=== PATIENT | female | born 1990 | race Caucasian/White ===

== ENCOUNTER 2018-10-17 20:43 | Emergency (ER) | payer BC, SELFPAY ==
[2018-10-17] MEDS ORDERED: CEFTRIAXONE 1000 MG/VIAL ONE (21:34)
[2018-10-17] MEDS ORDERED: LIDOCAINE 1% MPF 2 ML AMPULE ONE (21:35)
[2018-10-17 22:11] LABS: Urine Blood 2+ (NEG); Urine Glucose TRACE (NEG); Urine Protein NEGATIVE (NEG); Urine Specific Gravity 1.015 (1.005-1.030); Urine pH 5.5 (5.0-7.0)
[2018-10-17] MEDS ORDERED: SMZ./TMP. 800/160 MG TABLET ONE (23:21)
[2018-10-18] MEDS ORDERED: TAMSULOSIN 0.4 MG SR CAP ONE (00:08)
[2018-10-18] MEDS ORDERED: ONDANSETRON 4 MG/2 ML VIAL ONE (00:08)
[2018-10-18] MEDS ORDERED: MORPHINE 4 MG/ML SYR ONE (00:08)
[2018-10-18 00:42] LABS: Absolute Lymphocytes (CBC) 1.3 K/uL (0.7-4.9); Absolute Monocytes 0.6 K/uL (0.1-1.3); Absolute Neutrophil 14.3 K/uL (1.8-8.0); Basophils % 0.3 % (0-1.3); Eosinophils % 0.2 % (0-4.4); Lymphocytes % 8.3 % (15.3-44.8); MCH 33.4 pg (27.0-35.0); MCV 96.5 fL (80-100); MPV 8.1 fL (7.6-11.3); RBC Red Blood Cell Count 4.87 M/uL (3.86-4.86)
[2018-10-18 00:53] LABS: Albumin 4.3 g/dL (3.4-5.0); Bilirubin Total 0.4 mg/dL (0.2-1.0); Potassium 3.8 mmol/L (3.5-5.1); Protein, Total 8.1 g/dL (6.4-8.2)
--- NOTE | 2018-10-18 01:21 | ER ---
Nurse's Notes [facility] Name: Ana Capone Age: 28 yrs Sex: Female : 1990 Arrival Date: 10/17/2018 Time: 20:44 Bed 18 Private MD: Diagnosis: Cystitis;Hydronephrosis with renal and ureteral calculous [id number] mm left proximal ureter;Elevated white blood cell count Presentation: 10/17 20:47 Presenting complaint: Patient states: "We went to the clinic on Wednesday for symptoms aj1 of UTI, I had some blood in my urine. They gave me Cipro, but now I'm having back pains." Denies fever. Transition of care: patient was not received from another setting of care. Onset of symptoms was October 17, 2018. Risk Assessment: Do you want to hurt yourself or someone else? Patient reports no desire to harm self or others. Initial Sepsis Screen: Does the patient meet any 2 criteria? No. Patient's initial sepsis screen is negative. Does the patient have a suspected source of infection? Yes: Dysuria/Frequency/Urgency/UTI. Care prior to arrival: None. 20:47 Method Of Arrival: Ambulatory aj1 20:47 Acuity: YANNICK 4 aj1 Triage Assessment: 20:49 General: Appears in no apparent distress. uncomfortable, Behavior is calm, cooperative, aj1 appropriate for age. Pain: Complains of pain in back Pain currently is 8 out of 10 on a pain scale. Neuro: Level of Consciousness is awake, alert, obeys commands. Cardiovascular: Patient's skin is warm and dry. Respiratory: Airway is patent Respiratory effort is even, unlabored, Respiratory pattern is regular, symmetrical. : Denies burning with urination, urinary frequency, urgency. Musculoskeletal: Range of motion: intact in all extremities. 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 - Social history:: Smoking status: Patient uses tobacco products, smokes one-half pack cigarettes per day. - Ebola Screening: : Patient denies travel to an Ebola-affected area in the 21 days before illness onset. - Family history:: not pertinent. Screenin:08 Abuse screen: Denies threats or abuse. Denies injuries from another. Nutritional ao screening: No deficits noted. Tuberculosis screening: No symptoms or risk factors identified. Fall Risk None identified. Assessment: 21:04 General: Appears in no apparent distress. uncomfortable. Pain: Complains of pain in ao back Pain does not radiate. Pain currently is 8 out of 10 on a pain scale. Neuro: Level of Consciousness is awake, alert, obeys commands, Oriented to person, place, time, situation, Appropriate for age Moves all extremities. Full function Speech is normal, Facial symmetry appears normal, Pupils are PERRLA. Cardiovascular: Capillary refill < 3 seconds Patient's skin is warm and dry. Respiratory: Airway is patent Respiratory effort is even, unlabored, Respiratory pattern is regular, symmetrical, Breath sounds are clear bilaterally. GI: No signs and/or symptoms were reported involving the gastrointestinal system. Abdomen is non-distended, Bowel sounds present X 4 quads. : Urine is ap blood. EENT: No signs and/or symptoms were reported regarding the EENT system. Derm: Skin is intact, Skin is pink, warm \\T\\ dry. normal, Skin temperature is warm. Musculoskeletal: Circulation, motion, and sensation intact. Range of motion: intact in all extremities. 22:11 Reassessment: Patient appears in no apparent distress at this time. Patient and/or ao family updated on plan of care and expected duration. Pain level reassessed. Patient is alert, oriented x 3, equal unlabored respirations, skin warm/dry/pink. Waiting on Ct Scan. 23:19 Reassessment: Patient appears in no apparent distress at this time. Patient and/or ao family updated on plan of care and expected duration. Pain level reassessed. Patient medicated with Bactrim as ordered by Dr Santoro. 10/18 00:40 Reassessment: Patient appears in no apparent distress at this time. Patient and/or ao family updated on plan of care and expected duration. Pain level reassessed. Patient is alert, oriented x 3, equal unlabored respirations, skin warm/dry/pink. 01:21 Reassessment: Patient o be discharge after 2 Liter of fluids are given. ao 01:56 Reassessment: Pt back from X-ray and getting fluids before DC. ao 03:28 Reassessment: DC instructions given to patient and significant other. patient agree ao with POC and to follow up with PCP. No questions at this time. Vital Signs: 10/17 20:49 BP 142 / 92; Pulse 89; Resp 18; Temp 98.2; Pulse Ox 100% on R/A; Weight 77.56 kg (R); aj1 Height 5 ft. 5 in. (165.10 cm) (R); Pain 8/10; 22:00 BP 141 / 96; Pulse 79; Resp 16; Pulse Ox 98% on R/A; ao 23:21 BP 134 / 92; Pulse 82; Resp 16; Pulse Ox 99% ; ao 12 00:40 BP 126 / 82; Pulse 72; Resp 16; Pulse Ox 100% on R/A; ao 03:25 BP 149 / 97; Pulse 75; Resp 15; Pulse Ox 98% on R/A; ao 10/17 20:49 Body Mass Index 28.46 (77.56 kg, 165.10 cm) aj1 ED Course: 10/17 20:44 Patient arrived in ED. ag3 20:48 Triage completed. aj1 20:49 Arm band placed on Patient placed in an exam room. aj1 20:54 Elijah Santoro MD is Attending Physician. gladis 21:04 Miguel Johnson, RN is Primary Nurse. ao 21:08 Patient has correct armband on for positive identification. Pulse ox on. NIBP on. ao 22:[address] via wheelchair. nj 22:52 CT completed. Patient tolerated procedure well. Patient moved back from CT. nj 22:57 CT Stone Protocol In Process Unspecified. EDMS 10/18 00:05 Inserted saline lock: 18 gauge in right antecubital area, using aseptic technique. ao Blood collected. 01:19 Ashley Simon MD is Referral Physician. gladis 01:47 Patient moved to radiology via wheelchair. kw 01:47 X-ray completed. Patient tolerated procedure well. kw 01:47 Patient moved back from radiology. kw 01:48 Abdomen 1 View (KUB) XRAY In Process Unspecified. EDMS 02:20 Inserted saline lock: 22 gauge in left antecubital area, using aseptic technique. ao 03:28 No provider procedures requiring assistance completed. IV discontinued, intact, ao bleeding controlled, No redness/swelling at site. Pressure dressing applied. Administered Medications: 10/17 21:38 Drug: Rocephin (cefTRIAXone) 1 grams Route: IM; Site: right gluteus; ao 22:27 Follow up: Response: No adverse reaction ao 10/18 00:14 Follow up: Response: No adverse reaction ao 10/17 23:16 Drug: Bactrim (160 mg-800 mg (DS) 1 tablet Route: PO; ao 10/18 00:14 Follow up: Response: No adverse reaction ao 00:13 Drug: morphine 4 mg Route: IVP; Site: right antecubital; ao 01:45 Follow up: Response: No adverse reaction ao 00:13 Drug: Zofran 4 mg Route: IVP; Site: right antecubital; ao 01:46 Follow up: Response: No adverse reaction ao 00:14 Drug: Flomax 0.4 mg Route: PO; ao 01:46 Follow up: Response: No adverse reaction ao 01:45 Drug: NS 0.9% 1000 ml Route: IV; Rate: 1 bolus; Site: left antecubital; ao 03:30 Follow up: IV Status: Completed infusion; IV Intake: 1000ml ao 01:45 Drug: NS 0.9% 1000 ml Route: IV; Rate: 1 bolus; Site: right antecubital; ao 03:31 Follow up: IV Status: Completed infusion; IV Intake: 1000ml ao 01:55 Drug: Rocephin - (cefTRIAXone) 1 grams Route: IVPB; Infused Over: 30 mins; Site: right ao antecubital; 01:58 Follow up: IV Status: Completed infusion; IV Intake: 10ml ao 03:31 Drug: TORadol 30 mg Route: IVP; Site: left antecubital; ao 03:31 Follow up: Response: Medication administered at discharge. ao Intake: 01:58 IV: 10ml; Total: 10ml. ao 03:30 IV: 1000ml; Total: 1010ml. ao 03:31 IV: 1000ml; Total: 2010ml. ao Outcome: 01:20 Discharge ordered by . gladis 03:28 Discharged to home ambulatory. ao 03:28 Condition: stable 03:28 Discharge instructions given to patient, significant other, Instructed on discharge instructions, follow up and referral plans. the need for admit, Demonstrated understanding of instructions, follow-up care, medications, Prescriptions given X 4. 03:36 Patient left the ED. ao Signatures: Dispatcher [employer] Viviana Hernandez RN RN Elijah Bae MD MD cha Whitley, Kimberlee kw Ortiz, Alex, RN RN ao Jordan, Darius Padilla, Irais gonzalez
--- NOTE | 2018-10-18 01:21 | EDPHYS ---
Physician Documentation [facility] Name: Ana Capone Age: 28 yrs Sex: Female : 1990 Arrival Date: 10/17/2018 Time: 20:44 Bed 18 Private MD: ED Physician Elijah Santoro HPI: 10/17 21:01 This 28 yrs old Female presents to ER via Ambulatory with complaints of Back gladis Pain. 21:01 The patient presents with pain that is acute, with no known mechanism of injury. The gladis symptoms are located in the left mid back. Onset: The symptoms/episode began/occurred 3 day(s) ago. The pain does not radiate. Associated signs and symptoms: The patient has no apparent associated signs or symptoms. The problem was sustained from unknown cause. Modifying factors: The patient symptoms are alleviated by nothing, the patient symptoms are aggravated by movement. Severity of symptoms: At their worst the symptoms were mild, in the emergency department the symptoms are unchanged. The patient has not experienced similar symptoms in the past. 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 - Social history:: Smoking status: Patient uses tobacco products, smokes one-half pack cigarettes per day. - Ebola Screening: : Patient denies travel to an Ebola-affected area in the 21 days before illness onset. - Family history:: not pertinent. ROS: 21:01 Constitutional: Negative for fever, chills, and weight loss, Eyes: Negative for injury, gladis pain, redness, and discharge, ENT: Negative for injury, pain, and discharge, Neck: Negative for injury, pain, and swelling, Cardiovascular: Negative for chest pain, palpitations, and edema, Respiratory: Negative for shortness of breath, cough, wheezing, and pleuritic chest pain, Abdomen/GI: Negative for abdominal pain, nausea, vomiting, diarrhea, and constipation, : Negative for injury, bleeding, discharge, and swelling, MS/Extremity: Negative for injury and deformity, Skin: Negative for injury, rash, and discoloration, Neuro: Negative for headache, weakness, numbness, tingling, and seizure, Psych: Negative for depression, anxiety, suicide ideation, homicidal ideation, and hallucinations, Allergy/Immunology: Negative for hives, rash, and allergies, Endocrine: Negative for neck swelling, polydipsia, polyuria, polyphagia, and marked weight changes, Hematologic/Lymphatic: Negative for swollen nodes, abnormal bleeding, and unusual bruising. 21:01 Back: Positive for flank pain, on the left. Exam: 21:03 Constitutional: This is a well developed, well nourished patient who is awake, alert, gladis and in no acute distress. Head/Face: Normocephalic, atraumatic. Eyes: Pupils equal round and reactive to light, extra-ocular motions intact. Lids and lashes normal. Conjunctiva and sclera are non-icteric and not injected. Cornea within normal limits. Periorbital areas with no swelling, redness, or edema. ENT: Nares patent. No nasal discharge, no septal abnormalities noted. Tympanic membranes are normal and external auditory canals are clear. Oropharynx with no redness, swelling, or masses, exudates, or evidence of obstruction, uvula midline. Mucous membranes moist. Neck: Trachea midline, no thyromegaly or masses palpated, and no cervical lymphadenopathy. Supple, full range of motion without nuchal rigidity, or vertebral point tenderness. No Meningismus. Chest/axilla: Normal chest wall appearance and motion. Nontender with no deformity. No lesions are appreciated. Cardiovascular: Regular rate and rhythm with a normal S1 and S2. No gallops, murmurs, or rubs. Normal PMI, no JVD. No pulse deficits. Respiratory: Lungs have equal breath sounds bilaterally, clear to auscultation and percussion. No rales, rhonchi or wheezes noted. No increased work of breathing, no retractions or nasal flaring. Skin: Warm, dry with normal turgor. Normal color with no rashes, no lesions, and no evidence of cellulitis. MS/ Extremity: Pulses equal, no cyanosis. Neurovascular intact. Full, normal range of motion. Neuro: Awake and alert, GCS 15, oriented to person, place, time, and situation. Cranial nerves II-XII grossly intact. Motor strength 5/5 in all extremities. Sensory grossly intact. Cerebellar exam normal. Normal gait. Psych: Awake, alert, with orientation to person, place and time. Behavior, mood, and affect are within normal limits. 21:03 Abdomen/GI: Inspection: gravid appearance, is noted, Bowel sounds: normal, Palpation: abdomen is soft and non-tender, Liver: no appreciated palpable abnormalities, Hernia: not appreciated. Vital Signs: 20:49 BP 142 / 92; Pulse 89; Resp 18; Temp 98.2; Pulse Ox 100% on R/A; Weight 77.56 kg (R); aj1 Height 5 ft. 5 in. (165.10 cm) (R); Pain 8/10; 22:00 BP 141 / 96; Pulse 79; Resp 16; Pulse Ox 98% on R/A; ao 23:21 BP 134 / 92; Pulse 82; Resp 16; Pulse Ox 99% ; ao 10/18 00:40 BP 126 / 82; Pulse 72; Resp 16; Pulse Ox 100% on R/A; ao 03:25 BP 149 / 97; Pulse 75; Resp 15; Pulse Ox 98% on R/A; ao 10/17 20:49 Body Mass Index 28.46 (77.56 kg, 165.10 cm) aj1 MDM: 10/17 20:54 Patient medically screened. [facility] 21:03 Data reviewed: vital signs, nurses notes, lab test result(s), urinalysis. [facility] 10/17 21:17 Order name: Urine Dipstick--Ancillary (enter results); Complete Time: 22:49 ms 10/17 21:17 Order name: Urine --Ancillary (enter results); Complete Time: 22:49 ms 10/17 23:45 Order name: CBC with Diff [facility] 10/17 23:45 Order name: Comprehensive Metabolic Panel [facility] 10/17 23:46 Order name: CBC with Automated Diff EDUT 10/17 23:46 Order name: Comprehensive Metabolic Panel; Complete Time: 01:11 EDMS 10/17 21:09 Order name: CT Stone Protocol [facility] 10/18 00:53 Order name: Manual Differential EDMS 10/18 01:17 Order name: Abdomen 1 View (KUB) XRAY [facility] 10/17 20:55 Order name: Urine Dipstick-Ancillary (obtain specimen); Complete Time: 21:16 [facility] 10/17 20:55 Order name: Urine Test (obtain specimen); Complete Time: 21:16 gladis Administered Medications: 21:38 Drug: Rocephin (cefTRIAXone) 1 grams Route: IM; Site: right gluteus; ao 22:27 Follow up: Response: No adverse reaction ao 10/18 00:14 Follow up: Response: No adverse reaction ao 10/17 23:16 Drug: Bactrim (160 mg-800 mg (DS) 1 tablet Route: PO; ao 10/18 00:14 Follow up: Response: No adverse reaction ao 00:13 Drug: morphine 4 mg Route: IVP; Site: right antecubital; ao 01:45 Follow up: Response: No adverse reaction ao 00:13 Drug: Zofran 4 mg Route: IVP; Site: right antecubital; ao 01:46 Follow up: Response: No adverse reaction ao 00:14 Drug: Flomax 0.4 mg Route: PO; ao 01:46 Follow up: Response: No adverse reaction ao 01:45 Drug: NS 0.9% 1000 ml Route: IV; Rate: 1 bolus; Site: left antecubital; ao 03:30 Follow up: IV Status: Completed infusion; IV Intake: 1000ml ao 01:45 Drug: NS 0.9% 1000 ml Route: IV; Rate: 1 bolus; Site: right antecubital; ao 03:31 Follow up: IV Status: Completed infusion; IV Intake: 1000ml ao 01:55 Drug: Rocephin - (cefTRIAXone) 1 grams Route: IVPB; Infused Over: 30 mins; Site: right ao antecubital; 01:58 Follow up: IV Status: Completed infusion; IV Intake: 10ml ao 03:31 Drug: TORadol 30 mg Route: IVP; Site: left antecubital; ao 03:31 Follow up: Response: Medication administered at discharge. ao Disposition: 10/18/18 01:20 Discharged to Home. Impression: Cystitis, Hydronephrosis with renal and ureteral calculous obstruction - 4-5 mm left proximal ureter, Elevated white blood cell count. - Condition is Stable. - Discharge Instructions: Dysuria, Kidney Stones, Urinary Tract Infection, Adult, Kidney Stones, [id number], Hydronephrosis, Dietary Guidelines to Help Prevent Kidney Stones. - Prescriptions for Tylenol- Codeine #3 300-30 mg Oral Tablet - take 2 tablets by ORAL route every 6 hours As needed; 30 tablet. Bactrim DS 800- 160 mg Oral Tablet - take 1 tablet by ORAL route every 12 hours for 7 days; 14 tablet. Flomax 0.4 mg Oral Capsule, Sust. Release 24 hr - take 1 capsule by ORAL route once daily 1/2 hour following the same meal each day; 30 capsule. Zofran 4 mg Oral Tablet - take 1 tablet by ORAL route every 12 hours As needed; 14 tablet. - Medication Reconciliation Form, Thank You Letter, Antibiotic Education, Prescription Opioid Use, Work release form form. - Follow up: Private Physician; When: 2 - 3 days; Reason: Recheck today's complaints, Continuance of care, Re-evaluation by your physician. Follow up: Ashley Simon; When: 2 - 3 days; Reason: Recheck today's complaints, Continuance of care, Re-evaluation by your physician. Signatures: Dispatcher [employer] EDMS Viviana Moyer RN RN ajElijah Oliva MD MD cha Ortiz, Alex, RN RN ao Corrections: (The following items were deleted from the chart) 03:36 01:20 10/18/2018 01:20 Discharged to Home. Impression: Cystitis; Hydronephrosis with ao renal and ureteral calculous obstruction - 4-5 mm left proximal ureter; Elevated white blood cell count. Condition is Stable. Discharge Instructions: Dysuria, Urinary Tract Infection, Adult, Kidney Stones, Kidney Stones, [id number], Hydronephrosis, Dietary Guidelines to Help Prevent Kidney Stones. Prescriptions for Bactrim DS 800-160 mg Oral Tablet - take 1 tablet by ORAL route every 12 hours for 7 days; 14 tablet, Flomax 0.4 mg Oral Capsule, Sust. Release 24 hr - take 1 capsule by ORAL route once daily 1/2 hour following the same meal each day; 30 capsule, Zofran 4 mg Oral Tablet - take 1 tablet by ORAL route every 12 hours As needed; 14 tablet, Tylenol-Codeine #3 300-30 mg Oral Tablet - take 2 tablets by ORAL route every 6 hours As needed; 30 tablet. and Forms are Medication Reconciliation Form, Thank You Letter, Antibiotic Education, Prescription Opioid Use. Follow up: Private Physician; When: 2 - 3 days; Reason: Recheck today's complaints, Continuance of care, Re-evaluation by your physician. Follow up: Ashley Simon; When: 2 - 3 days; Reason: Recheck today's complaints, Continuance of care, Re-evaluation by your physician. gladis
[2018-10-18 01:43] LABS: Blood Morphology Comment NOT SEEN (NOT SEEN); Platelet Estimate ADEQ
[2018-10-18] MEDS ORDERED: NA CHLORIDE 0.9% 2,000 ML ONE (01:47)
[2018-10-18] MEDS ORDERED: KETOROLAC 30 MG/ML INJ ONE (01:59)
[2018-10-18] MEDS ORDERED: CEFTRIAXONE/SWI 1gm 1 GM/10 ML SYR ONE (02:00)
[2018-10-18 03:45] VITALS: TEMP 98.2
[2018-10-18 03:50] VITALS: BP 149/97; O2SAT 98
--- NOTE | 2018-10-18 07:47 | RAD REPORT ---
EXAM DESCRIPTION: CT - Stone Protocol - 10/18/2018 3:48 am CLINICAL HISTORY: Abdominal pain. Flank pain/hematuria COMPARISON: None. TECHNIQUE: Computed axial tomography of the abdomen pelvis was obtained without oral or IV contrast. Lack of IV and oral contrast limits evaluation of solid organs, bowel, and vessels. Coronal reformat noy images were obtained and reviewed. Preliminary report generated by virtual radiologic and review ed prior to dictation All CT scans are performed using dose optimization technique as appropriate and may include automated exposure control or mA/KV adjustment according to patient size. FINDINGS: Tiny nonobstructing left renal calculus. Mild left hydronephrosis with perirenal stranding . 6 millimeter calculus proximal left ureter Hounsfield unit 776. 14 millimeter low-density area righ t kidney. The liver, spleen, pancreas and adrenals appear grossly normal There is no evidence of diverticulitis. The appendix appears normal IMPRESSION: A 6 millimeter calculus proximal left ureter resulting in mild left hydronephrosis. 14 millimeter low-density area right kidney nonspecific but probably represents a cyst. This should b e confirmed with ultrasound
--- NOTE | 2018-10-18 08:26 | RAD REPORT ---
EXAM DESCRIPTION: RAD - Abdomen 1 View (KUB) - 10/18/2018 1:50 am CLINICAL HISTORY: Abdomen pain. FINDINGS: The bowel gas pattern is unremarkable. A 8 millimeter left ureteral calculus overlies the left transverse process of L3.
== END 2018-10-18 03:36 | disposition home or self-care (01) ==
LOC: ER 20:43
DX: N30.90 Cystitis, unspecified without hematuria (principal); N13.2 Hydronephrosis with renal and ureteral calculous obstruction; D72.829 Elevated white blood cell count, unspecified; F17.210 Nicotine dependence, cigarettes, uncomplicated
CPT/HCPCS: 36415; 74018; 74176; 76377; 80053; 81003; 81025; 85025; 96372; 99284; J0696; J2001; J2405; J7030

== ENCOUNTER 2018-11-05 07:06 | Emergency (ER) | payer SELFPAY ==
[2018-11-05 07:49] LABS: Absolute Lymphocytes (CBC) 2.4 K/uL (0.7-4.9); Absolute Monocytes 0.7 K/uL (0.1-1.3); Absolute Neutrophil 5.9 K/uL (1.8-8.0); Basophils % 0.5 % (0-1.3); Eosinophils % 2.1 % (0-4.4); Hematocrit 44.7 % (36.0-45.0); Lymphocytes % 25.8 % (15.3-44.8); MPV 7.5 fL (7.6-11.3); Monocytes % 7.6 % (3.3-12.3); RBC Red Blood Cell Count 4.58 M/uL (3.86-4.86)
[2018-11-05 08:03] LABS: ALT/SGPT 34 U/L (12-78); AST/SGOT 15 U/L (15-37); Albumin 3.8 g/dL (3.4-5.0); Alkaline Phosphatase 125 U/L (45-117); BUN Blood Urea Nitrogen 11 mg/dL (7-18); Bicarbonate 26 mmol/L (21-32); Bilirubin Direct < 0.1 mg/dL (0-0.2); Bilirubin Total 0.2 mg/dL (0.2-1.0); Glucose Level 104 mg/dL (74-106); Lipase 89 U/L (73-393); Potassium 3.3 mmol/L (3.5-5.1); Protein, Total 7.6 g/dL (6.4-8.2); Sodium Level 139 mmol/L (136-145)
[2018-11-05 08:19] LABS: Urine Bacteria <20 /HPF (<20); Urine RBC 20-50 /HPF (NONE SEEN)
[2018-11-05 08:20] LABS: Urine Blood 1+ (NEG); Urine Glucose NEGATIVE (NEG); Urine Protein NEGATIVE (NEG); Urine pH 6.5 (5.0-7.0)
[2018-11-05 08:20] LABS: Urine Culture Reflex Order NOT NEEDED; Urine Mucus 1+ /HPF (NONE SEEN)
--- NOTE | 2018-11-05 08:25 | RAD REPORT ---
EXAM DESCRIPTION: CT - Stone Protocol - 11/05/2018 8:06 am CLINICAL HISTORY: Abdominal pain, left flank pain COMPARISON: CT stone October 17 TECHNIQUE: Axial 5 mm thick images were obtained without oral or IV contrast. The [id number] span s the entirety of the system including uppermost abdomen and lung bases. All CT scans are performed using dose optimization technique as appropriate and may include automated exposure control or mA/KV adjustment according to patient size. FINDINGS: Mild to moderate dilatation of the pelvis and calices on the left noted extending into the proximal left ureter. This is fractionally worse than October 17. The patient's 8 mm mid left ure ter calculus is still identified. There is been only 10 mm of distal migration of the stone since Oct. Distal to the stone the ureter is decompressed. No bladder calculus. No other obstructing o r nonobstructing calculi on the left. Left kidney is mildly edematous. No significant right side find ing. No suspicious renal masses. Isodense masses and pyelonephritis are not excluded on a stone erik col CT scan. No urinary bladder suspicious finding. No significant adrenal finding. Imaged portions of the liver, spleen and pancreas show no suspicious findings on non-contrast imaging . No gallbladder or biliary tree abnormality identified. No suspicious bowel findings. No hernia, mass or bulky lymphadenopathy noted. No free air, free fluid or inflammatory stranding. No significant bony abnormality. IMPRESSION: Patient has an 8 mm calcification mid left ureter. On a KUB projection stone is superimp osed on the L4 left transverse process. Hydronephrosis proximal to the stone is [id number] in degree, fractionally worse than October 17. Stone has migrated distally approximately 10 mm since the October 17 study. Isodense masses and pyelonephritis are not excluded on stone protocol technique.
--- NOTE | 2018-11-05 08:46 | EDPHYS ---
Physician Documentation [facility] Name: Ana Capone Age: 28 yrs Sex: Female : 1990 Arrival Date: 11/05/2018 Time: 07:12 Bed 14 Private MD: ED Physician Ana Kiser HPI: 11/05 07:31 This 28 yrs old Female presents to ER via Ambulatory with complaints of ma2 Possible Kidney Stone. 07:31 Onset: The symptoms/episode began/occurred gradually, 2 day(s) ago. The patient ma2 complains of pain in the left mid back. Onset: The symptoms/episode began/occurred gradually, 2 day(s) ago. The symptoms do not radiate. Associated signs and symptoms: Pertinent negatives: diarrhea, dizziness, dysuria, urinary frequency, headache, hematuria, nausea, pain radiating to the lower extremities, vomiting. Severity of pain: At its worst the pain was moderate in the emergency department the pain is unchanged. patient declined pain medicine in er, only want to know if stone has passed and make sure no kidney infection, takes bactrim and t3 at home . 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 - Social history:: Smoking status: Patient uses tobacco products, denies chronic smoking, but will smoke occasionally, Patient/guardian denies using alcohol, street drugs, The patient lives alone, . - Ebola Screening: : No symptoms or risks identified at this time. - Family history:: not pertinent. - Hospitalizations: : No recent hospitalization is reported. ROS: 07:31 Constitutional: Negative for fever, chills, and weight loss, Cardiovascular: Negative ma2 for chest pain, palpitations, and edema, Respiratory: Negative for shortness of breath, cough, wheezing, and pleuritic chest pain, Abdomen/GI: Negative for abdominal pain, nausea, diarrhea, and constipation, MS/Extremity: Negative for injury and deformity. 07:31 Back: Positive for flank pain, Negative for decreased range of motion, acute changes. 07:31 All other systems are negative. Exam: 07:31 Constitutional: This is a well developed, well nourished patient who is awake, alert, ma2 and in no acute distress. Neck: Trachea midline, no thyromegaly or masses palpated, and no cervical lymphadenopathy. Supple, full range of motion without nuchal rigidity, or vertebral point tenderness. No Meningismus. Chest/axilla: Normal chest wall appearance and motion. Nontender with no deformity. No lesions are appreciated. Cardiovascular: Regular rate and rhythm with a normal S1 and S2. No gallops, murmurs, or rubs. Normal PMI, no JVD. No pulse deficits. Respiratory: Lungs have equal breath sounds bilaterally, clear to auscultation and percussion. No rales, rhonchi or wheezes noted. No increased work of breathing, no retractions or nasal flaring. Abdomen/GI: Soft, non-tender, with normal bowel sounds. No distension or tympany. No guarding or rebound. No evidence of tenderness throughout. MS/ Extremity: Pulses equal, no cyanosis. Neurovascular intact. Full, normal range of motion. Neuro: Awake and alert, GCS 15, oriented to person, place, time, and situation. Cranial nerves II-XII grossly intact. Motor strength 5/5 in all extremities. Sensory grossly intact. Cerebellar exam normal. Normal gait. Vital Signs: 07:16 BP 147 / 103; Pulse 95; Resp 18; Temp 97.5; Pulse Ox 100% ; Weight 74.84 kg; Height 5 sv ft. 5 in. (165.10 cm); Pain 8/10; 07:54 BP 133 / 96; Pulse 82; Resp 16; Pulse Ox 98% on R/A; rb1 08:45 BP 136 / 92; Pulse 88; Resp 16; Pulse Ox 100% on R/A; Pain 7/10; rb1 09:08 BP 138 / 97; Pulse 90; Resp 17; Pulse Ox 98% on R/A; rb1 07:16 Body Mass Index 27.46 (74.84 kg, 165.10 cm) sv MDM: 07:19 Patient medically screened. ma2 07:31 Differential diagnosis: nephrolithiasis, pyelonephritis, UTI, Ureterolithiasis, urinary ma2 tract infection. 08:40 Data reviewed: vital signs, nurses notes, EMS record, lab test result(s), radiologic ma2 studies. Counseling: I had a detailed discussion with the patient and/or guardian regarding: the historical points, exam findings, and any diagnostic results supporting the discharge/admit diagnosis, the presence of at least one elevated blood pressure reading (>120/80) during this emergency department visit, the need for outpatient follow up. ED course: has mild to moderate hydro, pain is mild, creatinine is wnl no uti wbc wnl and vs wnl i explained that the fact that the stone is 8 mm and only progressed 1 cm down over perior of 20 and she already drink a lot of water and takes flomax daily, she may not pass the stone and will likely need urologic intervention, no urologist available in this hospital today and she does not meet criteria for emergency transfer.. i advised her to make all efforts to see urologist as soon as possible. . 11/05 07:20 Order name: Basic Metabolic Panel; Complete Time: 08:36 ma2 11/05 07:20 Order name: CBC with Diff; Complete Time: 08:36 ma2 11/05 07:20 Order name: Creatinine for Radiology; Complete Time: 08:36 ma2 11/05 07:20 Order name: Hepatic Function; Complete Time: 08:36 ma2 11/05 07:20 Order name: Lipase; Complete Time: 08:36 ma2 11/05 07:31 Order name: UA MICROSCOPIC; Complete Time: 08:36 ma2 11/05 07:20 Order name: IV Saline Lock; Complete Time: 07:48 ma2 11/05 07:20 Order name: Labs collected and sent; Complete Time: 07:48 ma2 11/05 07:20 Order name: CT Stone Protocol; Complete Time: 08:36 ma2 11/05 07:49 Order name: Urine Dipstick--Ancillary (enter results); Complete Time: 08:36 eb 11/05 07:49 Order name: Urine --Ancillary (enter results); Complete Time: 08:36 eb 11/05 07:31 Order name: Urine Dipstick-Ancillary (obtain specimen); Complete Time: 07:48 ma2 Administered Medications: 07:28 CANCELLED (Patient Refused; provider discretion): NS 0.9% 1000 ml IV at 1 bolus Per rb1 protocol; 1000 mL bolus 07:28 CANCELLED (Patient Refused; provider discretion): morphine 4 mg IVP once [facility] 07:28 CANCELLED (Patient Refused; provider discretion): Zofran 4 mg IVP once; over 2 minutes [facility] Disposition: 11/05/18 08:45 Discharged to Home. Impression: Calculus of urinary tract in diseases classified elsewhere. - Condition is Stable. - Discharge Instructions: Lithotripsy. - Work release form, Medication Reconciliation Form, Thank You Letter, Antibiotic Education, Prescription Opioid Use form. - Follow up: Private Physician; When: Tomorrow; Reason: Continuance of care. Signatures: Dispatcher [employer] EDAzalia Rivera RN RN Gala Gabriel RN RN rb1 Ana Kiser MD MD az2 Corrections: (The following items were deleted from the chart) 07:28 07:20 NS 0.9% 1000 ml IV at 1 bolus Per protocol; 1000 mL bolus [place]. [place] [id number] 07:28 07:20 morphine 4 mg IVP once [place]. [place] [id number] 07:28 07:20 Zofran 4 mg IVP once; over 2 minutes [place]. [place] [id number] 09:10 08:45 11/05/2018 08:45 Discharged to Home. Impression: Calculus of urinary tract in rb1 diseases classified elsewhere. Condition is Stable. Forms are Medication Reconciliation Form, Thank You Letter, Antibiotic Education, Prescription Opioid Use. Follow up: Private Physician; When: Tomorrow; Reason: Continuance of care. ma2
--- NOTE | 2018-11-05 08:46 | ER ---
Nurse's Notes [facility] Name: Ana Capone Age: 28 yrs Sex: Female : 1990 Arrival Date: 11/05/2018 Time: 07:12 Bed 14 Private MD: Diagnosis: Calculus of urinary tract in diseases classified elsewhere Presentation: 11/05 07:14 Presenting complaint: Patient states: left flank pain has been intermittent since sv 10/17/18 when she was dx with kidney stones. No difficulty urinating. Transition of care: patient was not received from another setting of care. Onset of symptoms was October 17, 2018. Care prior to arrival: None. 07:14 Method Of Arrival: Ambulatory sv 07:14 Acuity: YANNICK 3 sv 07:20 Risk Assessment: Do you want to hurt yourself or someone else? Patient reports no rb1 desire to harm self or others. Initial Sepsis Screen: Does the patient meet any 2 criteria? No. Patient's initial sepsis screen is negative. Does the patient have a suspected source of infection? No. Patient's initial sepsis screen is negative. Triage Assessment: 07:14 General: Appears in no apparent distress. uncomfortable, Behavior is calm, cooperative, sv appropriate for age. Pain: Complains of pain in left low back Pain currently is 8 out of 10 on a pain scale. Neuro: Level of Consciousness is awake, alert, obeys commands, Oriented to person, place, time, situation, Moves all extremities. Full function Gait is steady. Respiratory: Respiratory effort is even, unlabored, Respiratory pattern is regular, symmetrical. : Denies inability to void. 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 - Social history:: Smoking status: Patient uses tobacco products, denies chronic smoking, but will smoke occasionally, Patient/guardian denies using alcohol, street drugs, The patient lives alone, . - Ebola Screening: : No symptoms or risks identified at this time. - Family history:: not pertinent. - Hospitalizations: : No recent hospitalization is reported. Screenin:20 Abuse screen: Denies threats or abuse. Nutritional screening: No deficits noted. rb1 Tuberculosis screening: No symptoms or risk factors identified. Fall Risk None identified. Assessment: 07:20 General: Appears in no apparent distress. comfortable, Behavior is calm, cooperative. rb1 Pain: Complains of pain in left low back Pain currently is 7 out of 10 on a pain scale. Quality of pain is described as sharp. Neuro: Level of Consciousness is awake, alert, obeys commands, Oriented to person, place, time, situation. Cardiovascular: Capillary refill < 3 seconds is brisk in bilateral fingers. Respiratory: Airway is patent Respiratory effort is even, unlabored, Respiratory pattern is regular, symmetrical. GI: Bowel sounds present X 4 quads. Abd is soft and non tender. Derm: Skin is pink, warm \T\ dry. 07:20 : Reports burning with urination. rb1 08:01 Reassessment: Pt. went to CT. rb1 08:25 Reassessment: Patient appears in no apparent distress at this time. No changes from rb1 previously documented assessment. 09:00 Reassessment: Patient appears in no apparent distress at this time. Patient and/or rb1 family updated on plan of care and expected duration. Pain level reassessed. Patient is alert, oriented x 3, equal unlabored respirations, skin warm/dry/pink. Vital Signs: 07:16 BP 147 / 103; Pulse 95; Resp 18; Temp 97.5; Pulse Ox 100% ; Weight 74.84 kg; Height 5 sv ft. 5 in. (165.10 cm); Pain 8/10; 07:54 BP 133 / 96; Pulse 82; Resp 16; Pulse Ox 98% on R/A; rb1 08:45 BP 136 / 92; Pulse 88; Resp 16; Pulse Ox 100% on R/A; Pain 7/10; rb1 09:08 BP 138 / 97; Pulse 90; Resp 17; Pulse Ox 98% on R/A; rb1 07:16 Body Mass Index 27.46 (74.84 kg, 165.10 cm) sv ED Course: 07:12 Patient arrived in ED. mr 07:15 Triage completed. sv 07:16 Arm band placed on. sv 07:16 Patient placed in an exam room, on a stretcher. sv 07:19 Ana Kiser MD is Attending Physician. ma2 07:20 Patient has correct armband on for positive identification. Bed in low position. Call [facility] light in reach. Side rails up X 1. Pulse ox on. NIBP on. 07:22 Radiology exam delayed due to test not completed at this time. 2 07:27 Gala Gabriel, RN is Primary Nurse. rb1 07:35 Urine collected: clean catch specimen, clear. 3 07:37 Initial lab(s) drawn, by me, sent to lab. Inserted saline lock: 22 gauge in right 3 antecubital area, using aseptic technique. Blood collected. 08:07 CT Stone Protocol In Process Unspecified. EDMS 08:11 CT completed. Patient tolerated procedure well. Patient moved to CT via wheelchair. [address] 09:10 No provider procedures requiring assistance completed. IV discontinued, intact, rb1 bleeding controlled, No redness/swelling at site. Pressure dressing applied. Administered Medications: 07:28 CANCELLED (Patient Refused; provider discretion): NS 0.9% 1000 ml IV at 1 bolus Per [facility] protocol; 1000 mL bolus 07:28 CANCELLED (Patient Refused; provider discretion): morphine 4 mg IVP once rb1 07:28 CANCELLED (Patient Refused; provider discretion): Zofran 4 mg IVP once; over 2 minutes [facility] Outcome: 08:45 Discharge ordered by . ma2 09:10 Patient left the ED. rb1 09:10 Discharged to home ambulatory. [facility] 09:10 Condition: stable 09:10 Discharge instructions given to patient, Instructed on discharge instructions, follow up and referral plans. Demonstrated understanding of instructions, follow-up care, Prescriptions given X none Signatures: Dispatcher [employer] EDOK Azalia Stout, Hanh Clark RN mr Gala Gabriel, JOSE ALBERTO ABRAMS [facility] Nela Tejeda [facility] Keiry Briones [facility] Ana Kiser MD MD alDarrick
[2018-11-05 09:22] VITALS: TEMP 97.5
[2018-11-05 09:23] VITALS: BP 133/96; O2SAT 98
== END 2018-11-05 09:10 | disposition home or self-care (01) ==
LOC: ER 07:06
DX: N20.9 Urinary calculus, unspecified (principal); Z87.442 Personal history of urinary calculi
CPT/HCPCS: 36415; 74176; 76377; 80048; 80076; 81003; 81015; 81025; 83690; 85025; 99284

== ENCOUNTER 2018-12-30 17:24 | Emergency (ER) | payer SELFPAY ==
[2018-12-30] MEDS ORDERED: KETOROLAC 30 MG/ML INJ ONE (18:09)
[2018-12-30 18:14] LABS: Urine Blood 1+ (NEG); Urine Glucose NEGATIVE (NEG); Urine Protein 1+ (NEG)
[2018-12-30] MEDS ORDERED: NA CHLORIDE 0.9% 1,000 ML ONE (18:30)
--- NOTE | 2018-12-30 18:42 | RAD REPORT ---
EXAM DESCRIPTION: CT - Stone Protocol - 12/30/2018 6:12 pm CLINICAL HISTORY: Abdominal pain. Left flank pain COMPARISON: October 2018 TECHNIQUE: Computed axial tomography of the abdomen pelvis was obtained without oral or IV contrast. Lack of IV and oral contrast limits evaluation of solid organs, bowel, and vessels. Coronal reformat noy images were obtained and reviewed. All CT scans are performed using dose optimization technique as appropriate and may include automated exposure control or mA/KV adjustment according to patient size. FINDINGS: A renal calculus is not seen. 6 millimeter calculus distal left ureter Hounsfield unit 979 . Mild left hydronephrosis. The calculus lies about 7 centimeters from the UVJ. 18 millimeter nonspec ific low-density right renal mass The liver, spleen, pancreas and adrenals appear grossly normal There is no evidence of diverticulitis. The appendix appears normal 2.3 x 1.6 centimeter left inguinal lymph node. 1.6 x 1.6 centimeter left inguinal lymph node. Both rolon ve enlarged since the prior exam IMPRESSION: A 6 millimeter calculus distal left ureter with mild left hydronephrosis Two inguinal lymph nodes which have enlarged since the prior exam. It is recommended that the patient have a nonemergent left inguinal ultrasound for further evaluation
[2018-12-30 18:52] LABS: BUN Blood Urea Nitrogen 10 mg/dL (7-18); Bicarbonate 29 mmol/L (21-32); Glucose Level 84 mg/dL (74-106); Potassium 3.7 mmol/L (3.5-5.1); Sodium Level 140 mmol/L (136-145)
--- NOTE | 2018-12-30 18:58 | EDPHYS ---
Physician Documentation [facility] Name: Ana Capone Age: 28 yrs Sex: Female : 1990 Arrival Date: 12/30/2018 Time: 17:25 Bed 14 Private MD: ED Physician Hasmukh Rush HPI: 12/30 18:15 This 28 yrs old Female presents to ER via Ambulatory with complaints of kdr Possible Kidney Stone, Urinary Problem. 18:15 The patient presents with abdominal pain Left flank. Onset: The symptoms/episode kdr began/occurred Last few days. The symptoms radiate to the left flank. Associated signs and symptoms: Pertinent positives: dysuria, nausea, Pertinent negatives: blood in stools, chest pain, constipation, diarrhea, fever, headache, hematuria, palpitations, shortness of breath, vaginal discharge, vomiting, vomiting blood. The symptoms are described as achy, burning, vague, waxing/waning. Modifying factors: The symptoms are alleviated by nothing, the symptoms are aggravated by nothing. Severity of pain: At its worst the pain was severe in the emergency department the pain has improved moderately. The patient has experienced similar episodes in the past, a few times. The patient has not recently seen a physician. 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 - Social history:: Smoking status: Patient uses tobacco products, smokes one-half pack cigarettes per day. - Ebola Screening: : No symptoms or risks identified at this time. ROS: 18:15 Constitutional: Negative for fever, chills, and weight loss, Eyes: Negative for injury, kdr pain, redness, and discharge, ENT: Negative for injury, pain, and discharge, Neck: Negative for injury, pain, and swelling, Cardiovascular: Negative for chest pain, palpitations, and edema, Respiratory: Negative for shortness of breath, cough, wheezing, and pleuritic chest pain, Back: Negative for injury and pain, : Negative for injury, bleeding, discharge, and swelling, MS/Extremity: Negative for injury and deformity, Skin: Negative for injury, rash, and discoloration, Neuro: Negative for headache, weakness, numbness, tingling, and seizure activity. Psych: Negative for depression, anxiety, suicide ideation, homicidal ideation, and hallucinations, Allergy/Immunology: Negative for hives, rash, and allergies, Endocrine: Negative for neck swelling, polydipsia, polyuria, polyphagia, and marked weight changes, Hematologic/Lymphatic: Negative for swollen nodes, abnormal bleeding, and unusual bruising. 18:15 Abdomen/GI: Positive for abdominal pain, nausea, Negative for constipation, abdominal cramps, abdominal distension, anorexia, dysphagia, hematemesis, black/tarry stool, rectal pain, rectal bleeding, bowel incontinence. Exam: 18:15 Constitutional: This is a well developed, well nourished patient who is awake, alert, kdr and in no acute distress. Head/Face: Normocephalic, atraumatic. Eyes: Pupils equal round and reactive to light, extra-ocular motions intact. Lids and lashes normal. Conjunctiva and sclera are non-icteric and not injected. Cornea within normal limits. Periorbital areas with no swelling, redness, or edema. Neck: Trachea midline, no thyromegaly or masses palpated, and no cervical lymphadenopathy. Supple, full range of motion without nuchal rigidity, or vertebral point tenderness. No Meningismus. Chest/axilla: Normal chest wall appearance and motion. Nontender with no deformity. No lesions are appreciated. Cardiovascular: Regular rate and rhythm with a normal S1 and S2. No gallops, murmurs, or rubs. Normal PMI, no JVD. No pulse deficits. Respiratory: Lungs have equal breath sounds bilaterally, clear to auscultation and percussion. No rales, rhonchi or wheezes noted. No increased work of breathing, no retractions or nasal flaring. Back: No spinal tenderness. No costovertebral tenderness. Full range of motion. Skin: Warm, dry with normal turgor. Normal color with no rashes, no lesions, and no evidence of cellulitis. MS/ Extremity: Pulses equal, no cyanosis. Neurovascular intact. Full, normal range of motion. Neuro: Awake and alert, GCS 15, oriented to person, place, time, and situation. Cranial nerves II-XII grossly intact. Motor strength 5/5 in all extremities. Sensory grossly intact. Cerebellar exam normal. Normal gait. Psych: Awake, alert, with orientation to person, place and time. Behavior, mood, and affect are within normal limits. 18:15 Abdomen/GI: Inspection: abdomen appears normal, Bowel sounds: active, diminished, in all quadrants, Palpation: soft, mild abdominal tenderness, in the anterior aspect of left lateral abdomen and left lower quadrant. Vital Signs: 17:41 BP 139 / 97; Pulse 92; Resp 18 S; Temp 98.0(TE); Pulse Ox 100% on R/A; Weight 77.56 kg aa5 (R); Height 5 ft. 5 in. (165.10 cm) (R); Pain 8/10; 18:45 BP 142 / 73; Pulse 81; Resp 16; Pulse Ox 99% on R/A; Pain 4/10; em 19:20 BP 140 / 77; Pulse 75; Resp 18 S; Temp 98.3(O); Pulse Ox 100% on R/A; cc3 17:41 Body Mass Index 28.46 (77.56 kg, 165.10 cm) aa5 MDM: 18:15 Data reviewed: vital signs, nurses notes, lab test result(s), radiologic studies. kdr Counseling: I had a detailed discussion with the patient and/or guardian regarding: the historical points, exam findings, and any diagnostic results supporting the discharge/admit diagnosis, lab results, radiology results. 18:57 Patient medically screened. [facility] 12/30 17:55 Order name: Urine Dipstick--Ancillary (enter results) 12/30 17:55 Order name: Urine --Ancillary (enter results) 12/30 17:56 Order name: CBC with Diff 12/30 17:56 Order name: Basic Metabolic Panel 12/30 18:15 Order name: Urine --Ancillary; Complete Time: 18:53 EDMS 12/30 18:15 Order name: Urine Dipstick-Ancillary; Complete Time: 18:53 EDMS 12/30 17:56 Order name: CT Stone Protocol 12/30 18:44 Order name: CT; Complete Time: 18:53 EDMS 12/30 18:53 Order name: Basic Metabolic Panel; Complete Time: 18:53 EDMS 12/30 19:05 Order name: CBC with Automated Diff; Complete Time: 19:26 EDMS Administered Medications: 18:32 Drug: TORadol 30 mg Route: IVP; Site: right antecubital; ss 18:52 Follow up: Response: No adverse reaction; Pain is decreased em 18:32 Drug: NS 0.9% 1000 ml Route: IV; Rate: 1 bolus; Site: right antecubital; ss 19:35 Follow up: Response: No adverse reaction; IV Status: Completed infusion; IV Intake: cc3 1000ml Disposition: 12/30/18 18:57 Discharged to Home. Impression: kidney stone - left, L:eft hydronephrosus. - Condition is Stable. - Discharge Instructions: Kidney Stones, [id number]. - Prescriptions for Tylenol- Codeine #3 300-30 mg Oral Tablet - take 2 tablets by ORAL route every 4-6 hours As needed; 16 tablet. Flomax 0.4 mg Oral Capsule, Sust. Release 24 hr - take 1 capsule by ORAL route once daily 1/2 hour following the same meal each day; 10 capsule. Bactrim DS 800- 160 mg Oral Tablet - take 1 tablet by ORAL route every 12 hours for 3 days; 6 tablet. promethazine 25 mg Oral Tablet - take 1 tablet by ORAL route every 6 hours As needed; 12 tablet. - Medication Reconciliation Form, Thank You Letter, Antibiotic Education, Prescription Opioid Use, Work release form form. - Follow up: Private Physician; When: 2 - 3 days; Reason: If symptoms return, Further diagnostic work-up, Recheck today's complaints, Continuance of care, Re-evaluation by your physician. - Problem is an acute exacerbation. - Symptoms have improved. - Notes: Recommend follow-up ultrasound of groin for possible lymph nodes Signatures: Dispatcher [employer] EDHasmukh Talavera MD MD kdr Munoz, Edgar, SUPERVISOR NUCLEAR MEDICINE SUPERVISOR NUCLEAR MEDICINE em Elysia Wheat, RN RN aa5 Penny Peralta RN RN ss Starr, Gregory, MD MD gs Cordel, Charlene cc3 Corrections: (The following items were deleted from the chart) 19:46 18:57 12/30/2018 18:57 Discharged to Home. Impression: kidney stone - left; L:eft cc3 hydronephrosus. Condition is Stable. Forms are Medication Reconciliation Form, Thank You Letter, Antibiotic Education, Prescription Opioid Use. Follow up: Private Physician; When: 2 - 3 days; Reason: If symptoms return, Further diagnostic work-up, Recheck today's complaints, Continuance of care, Re-evaluation by your physician. Problem is an acute exacerbation. Symptoms have improved. kdr
--- NOTE | 2018-12-30 18:58 | ER ---
Nurse's Notes [facility] Name: Ana Capone Age: 28 yrs Sex: Female : 1990 Arrival Date: 12/30/2018 Time: 17:25 Bed 14 Private MD: Diagnosis: kidney stone - left;L:eft hydronephrosus Presentation: 12/30 17:40 Presenting complaint: Patient states: left flank pain that began last night. Pt also aa5 reports burning with urination. Transition of care: patient was not received from another setting of care. Onset of symptoms was December 2018. Risk Assessment: Do you want to hurt yourself or someone else? Patient reports no desire to harm self or others. Initial Sepsis Screen: Does the patient meet any 2 criteria? No. Patient's initial sepsis screen is negative. Does the patient have a suspected source of infection? No. Patient's initial sepsis screen is negative. Care prior to arrival: None. 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 - Social history:: Smoking status: Patient uses tobacco products, smokes one-half pack cigarettes per day. - Ebola Screening: : No symptoms or risks identified at this time. Screenin:00 Abuse screen: Denies threats or abuse. Nutritional screening: No deficits noted. em Tuberculosis screening: No symptoms or risk factors identified. Fall Risk None identified. Assessment: 18:00 General: Appears in no apparent distress. comfortable, Behavior is calm, cooperative, em Denies fever. Pain: Complains of pain in left lower quadrant and anterior aspect of left lateral abdomen Pain currently is 8 out of 10 on a pain scale. Neuro: Level of Consciousness is awake, alert, obeys commands, Oriented to person, place, time, situation. Cardiovascular: Capillary refill < 3 seconds Patient's skin is warm and dry. Respiratory: Airway is patent Respiratory effort is even, unlabored, Respiratory pattern is regular, symmetrical. GI: Abdomen is flat, Bowel sounds present X 4 quads. Abd is soft and non tender X 4 quads. Patient currently denies nausea, vomiting. :. : Reports burning with urination. Derm: Skin is intact, is healthy with good turgor, Skin is pink, warm \T\ dry. Musculoskeletal: Capillary refill < 3 seconds, Range of motion: intact in all extremities. 18:47 Reassessment: Patient appears in no apparent distress at this time. Patient and/or em family updated on plan of care and expected duration. Pain level reassessed. Patient is alert, oriented x 3, equal unlabored respirations, skin warm/dry/pink. rates pain 4/10 Patient states feeling better. 19:15 Reassessment: Patient appears in no apparent distress at this time. Patient and/or cc3 family updated on plan of care and expected duration. Pain level reassessed. Patient is alert, oriented x 3, equal unlabored respirations, skin warm/dry/pink. Received this female patient from morning shift LITO Mercado as a case of urinary problem for discharge home after IV fluids completion. With IV cannula gauge 20 at the right ACV with ongoing IVF of NS 1liter bolus. 19:40 Reassessment: IV fluids completed, patient discharged home with prescriptions given. IV cc3 cannula removed and patient left ER vitally stable and ambulatory with her . Vital Signs: 17:41 BP 139 / 97; Pulse 92; Resp 18 S; Temp 98.0(TE); Pulse Ox 100% on R/A; Weight 77.56 kg aa5 (R); Height 5 ft. 5 in. (165.10 cm) (R); Pain 8/10; 18:45 BP 142 / 73; Pulse 81; Resp 16; Pulse Ox 99% on R/A; Pain 4/10; em 19:20 BP 140 / 77; Pulse 75; Resp 18 S; Temp 98.3(O); Pulse Ox 100% on R/A; cc3 17:41 Body Mass Index 28.46 (77.56 kg, 165.10 cm) aa5 ED Course: 17:25 Patient arrived in ED. as 17:33 Hasmukh Rush MD is Attending Physician. kdr 17:40 Triage completed. aa5 17:40 Arm band placed on. aa5 17:44 Rogelio French LVN is Primary Nurse. em 18:00 Patient has correct armband on for positive identification. Placed in gown. Bed in low em position. Call light in reach. Side rails up X2. Pulse ox on. NIBP on. 18:02 Patient moved to [place] via wheelchair. nj 18:08 CT completed. Patient tolerated procedure well. Patient moved back from [place]. or 18:30 Initial lab(s) drawn, by me, sent to lab. Urine collected: clean catch specimen, clear. em Inserted saline lock: 20 gauge in right antecubital area, using aseptic technique. Blood collected. 19:40 No provider procedures requiring assistance completed. IV discontinued, intact, cc3 bleeding controlled, No redness/swelling at site. Pressure dressing applied. Administered Medications: 18:32 Drug: TORadol 30 mg Route: IVP; Site: right antecubital; ss 18:52 Follow up: Response: No adverse reaction; Pain is decreased em 18:32 Drug: NS 0.9% 1000 ml Route: IV; Rate: 1 bolus; Site: right antecubital; ss 19:35 Follow up: Response: No adverse reaction; IV Status: Completed infusion; IV Intake: cc3 1000ml Intake: 19:35 IV: 1000ml; Total: 1000ml. cc3 Outcome: 18:57 Discharge ordered by MD. kdr 19:40 Discharged to home ambulatory, with family. cc3 19:40 Condition: stable 19:40 Discharge instructions given to patient, family, Instructed on discharge instructions, follow up and referral plans. medication usage, Demonstrated understanding of instructions, follow-up care, medications, Prescriptions given X 4. 19:46 Patient left the ED. cc3 Signatures: Hasmukh Rush MD MD [facility] Rogelio French, DIAMOND PICKER DIAMOND PICKER em Marly South Audri, RN RN aa5 Penny Peralta, JOSE ALBERTO RN Darius Floyd Charlene cc3
[2018-12-30 19:03] LABS: Absolute Lymphocytes (CBC) 2.4 K/uL (0.7-4.9); Absolute Monocytes 0.4 K/uL (0.1-1.3); Absolute Neutrophil 4.5 K/uL (1.8-8.0); Basophils % 0.7 % (0-1.3); Eosinophils % 1.9 % (0-4.4); Hematocrit 43.8 % (36.0-45.0); MPV 7.5 fL (7.6-11.3); Monocytes % 5.4 % (3.3-12.3); RBC Red Blood Cell Count 4.49 M/uL (3.86-4.86)
[2018-12-30 20:13] VITALS: TEMP 98
[2018-12-30 20:14] VITALS: BP 142/73; O2SAT 99
== END 2018-12-30 19:46 | disposition home or self-care (01) ==
LOC: ER 17:24
DX: N13.2 Hydronephrosis with renal and ureteral calculous obstruction (principal); F17.210 Nicotine dependence, cigarettes, uncomplicated
CPT/HCPCS: 36415; 74176; 76377; 80048; 81003; 81025; 85025; 96361; 96374; 99284; J7030

== ENCOUNTER 2019-01-10 10:04 | Day surgery (SDC) | payer SELFPAY ==
[2019-01-06 10:09] LABS: Absolute Lymphocytes (CBC) 2.8 K/uL (0.7-4.9); Absolute Monocytes 0.6 K/uL (0.1-1.3); Absolute Neutrophil 4.5 K/uL (1.8-8.0); Basophils % 0.5 % (0-1.3); Eosinophils % 2.2 % (0-4.4); Hematocrit 45.9 % (36.0-45.0); MPV 7.7 fL (7.6-11.3); Monocytes % 7.7 % (3.3-12.3); RBC Red Blood Cell Count 4.72 M/uL (3.86-4.86)
--- NOTE | 2019-01-06 10:10 | RAD REPORT ---
EXAM DESCRIPTION: RAD - Chest Pa And Lat (2 Views) - 01/06/2019 10:05 am CLINICAL HISTORY: preop Chest pain. COMPARISON: Abdomen 1 View (KUB) dated 01/05/2019; Abdomen 1 View (KUB) dated 10/18/2018 FINDINGS: The lungs are clear. The heart is normal in size. No displaced fractures. IMPRESSION: No acute or concerning finding suspected.
[2019-01-06 10:14] LABS: Urine Appearance CLEAR; Urine Bilirubin NEGATIVE (NEG); Urine Blood 1+ (NEG); Urine Color YELLOW; Urine Glucose NEGATIVE (NEG); Urine Microscopic Reflex ORDER UMIC; Urine Protein NEGATIVE (NEG); Urine Specific Gravity <=1.005 (1.005-1.030); Urine Urobilinogen 0.2 mg/dL (0.2-1.0)
[2019-01-06 10:17] LABS: Protime INR 1.13
[2019-01-06 10:30] LABS: BUN Blood Urea Nitrogen 7 mg/dL (7-18); Bicarbonate 29 mmol/L (21-32); Glucose Level 87 mg/dL (74-106); Phosphorus 3.5 mg/dL (2.5-4.9); Potassium 3.6 mmol/L (3.5-5.1); Sodium Level 139 mmol/L (136-145); Uric Acid 3.7 mg/dL (2.6-6.0)
[2019-01-06 10:40] LABS: Urine Culture Reflex Order NOT NEEDED
[2019-01-06 10:42] LABS: Urine Bacteria <20 /HPF (<20); Urine RBC <5 /HPF (NONE SEEN)
--- NOTE | 2019-01-06 22:29 | EKG ---
Test Date: 2019-01-06 Test Time: 09:47:09 Sheet Manager: BREEZY MEASUREMENT RESULTS: Intervals: Rate: 76 CA: 172 QRSD: 84 QT: 386 QTc: 434 [place]: P: 37 CA: 172 QRS: 69 T: 38 INTERPRETIVE STATEMENTS: Normal sinus rhythm Normal ECG No previous ECG available for comparison Electronically Signed On 01-06-19 22:27:54 EPIC ANALYST by Roney Marc
[2019-01-10] MEDS ORDERED: GENTAMICIN 80 MG/100 ML BAG 80 MG/100 ML BAG IV ONE (10:31)
[2019-01-10] MEDS: Ringers Lactate 1,000 ML IV ONE ×2 (10:35→12:39)
--- NOTE | 2019-01-10 11:28 | RAD REPORT ---
EXAM DESCRIPTION: RAD - Abdomen 1 View (KUB) - 01/10/2019 11:14 am CLINICAL HISTORY: Abdomen pain. ICD N 20.0 FINDINGS: The bowel gas pattern is unremarkable. Distal left ureteral calculus has migrated a few millimeters inferiorly since the January 05 exam
[2019-01-10] MEDS ORDERED: FENTANYL CITR 100 MCG/2 ML ONE (12:48)
[2019-01-10] MEDS ORDERED: LIDOCAINE 2% MPF 5 ML VIAL ONE (12:48)
[2019-01-10] MEDS ORDERED: MIDAZOLAM HCL 2 MG/2 ML INJ ONE (12:48)
[2019-01-10] MEDS ORDERED: PROPOFOL 200 MG/20 ML VIAL IV ONE (12:48)
[2019-01-10] MEDS ORDERED: MEPERIDINE HCL 25 MG/0.5 ML ONE (13:45)
[2019-01-10] MEDS ORDERED: HYDROCODONE/APAP 7.5/325 MG TAB ONE (14:46)
[2019-01-10 14:48] VITALS: BP 110/65; TEMP 98; O2SAT 98
== END 2019-01-10 14:45 | disposition home or self-care (01) ==
LOC: OR 10:04
PROVIDERS: ATTEND Urology
PROC: 0TF7XZZ Fragmentation in Left Ureter, External Approach (ICD-10-PCS; principal; 2019-01-10 12:45)
DX: N20.2 Calculus of kidney with calculus of ureter (principal); F17.210 Nicotine dependence, cigarettes, uncomplicated
CPT/HCPCS: 36415; 50590; 71046; 74018; 80048; 81003; 81015; 81025; 84100; 84550; 85025; 85610; 85730; 87086; 87088; 93005; J1580; J2175; J2250; J2704; J3010

== ENCOUNTER 2020-06-17 15:48 | Emergency (ER) | payer SELFPAY ==
[2020-06-17] MEDS ORDERED: METOCLOPRAMIDE 10 MG/2mL INJ ONE (16:32)
[2020-06-17] MEDS ORDERED: DIPHENHYDRAMINE 50 MG/ML VIAL ONE (16:32)
[2020-06-17] MEDS ORDERED: NA CHLORIDE 0.9% 500 ML ONE (16:32)
[2020-06-17] MEDS ORDERED: dexAMETHasone 10 MG/ML VIAL ONE (16:32)
--- NOTE | 2020-06-18 07:22 | EDPHYS ---
Physician Documentation [facility] Name: Ana Capone Age: 30 yrs Sex: Female : 1990 Arrival Date: 06/17/2020 Time: 16:02 Bed 15 Private MD: ED Physician Ronald Ramirez HPI: 06/17 16:34 This 30 yrs old Female presents to ER via Ambulatory with complaints of jr8 Headache. 16:34 The patient complains of pain to the forehead, right eye and left eye. The patient jr8 describes the headache as a pressure, throbbing. Onset: The symptoms/episode began/occurred acutely, yesterday. Associated signs and symptoms: The patient has no apparent associated signs or symptoms. Severity of symptoms: At its worst the pain was moderate, in the emergency department the pain is unchanged. Headache History: The patient has had previous headaches and this one is similar to previous episodes. The symptoms are alleviated by nothing. the symptoms are aggravated by movement, noise. The patient has experienced similar episodes in the past, several times, but today's symptoms are worse, lasting longer. The patient has not recently seen a physician. Historical: - Allergies: 16:03 Tramadol HCl; ll1 - PMHx: 16:03 Kidney stones; Migraines; ll1 - PSHx: 16:03 None; ll1 - Immunization history:: Flu vaccine is up to date. - Social history:: Smoking status: Patient denies any tobacco usage or history of. Patient/guardian denies using alcohol, street drugs, tobacco products. ROS: 16:34 Eyes: Negative for injury, pain, redness, and discharge, ENT: Negative for injury, jr8 pain, and discharge, Neck: Negative for injury, pain, and swelling, Cardiovascular: Negative for chest pain, palpitations, and edema, Respiratory: Negative for shortness of breath, cough, wheezing, and pleuritic chest pain, Abdomen/GI: Negative for abdominal pain, nausea, vomiting, diarrhea, and constipation, Back: Negative for injury and pain, MS/Extremity: Negative for injury and deformity, Skin: Negative for injury, rash, and discoloration. 16:34 Neuro: Positive for headache, Negative for altered mental status, dizziness, gait disturbance. Exam: 16:34 Eyes: Pupils equal round and reactive to light, extra-ocular motions intact. Lids and jr8 lashes normal. Conjunctiva and sclera are non-icteric and not injected. Cornea within normal limits. Periorbital areas with no swelling, redness, or edema. ENT: Nares patent. No nasal discharge, no septal abnormalities noted. Tympanic membranes are normal and external auditory canals are clear. Oropharynx with no redness, swelling, or masses, exudates, or evidence of obstruction, uvula midline. Mucous membranes moist. Neck: Trachea midline, no thyromegaly or masses palpated, and no cervical lymphadenopathy. Supple, full range of motion without nuchal rigidity, or vertebral point tenderness. No Meningismus. Cardiovascular: Regular rate and rhythm with a normal S1 and S2. No gallops, murmurs, or rubs. Normal PMI, no JVD. No pulse deficits. Respiratory: Lungs have equal breath sounds bilaterally, clear to auscultation and percussion. No rales, rhonchi or wheezes noted. No increased work of breathing, no retractions or nasal flaring. Abdomen/GI: Soft, non-tender, with normal bowel sounds. No distension or tympany. No guarding or rebound. No evidence of tenderness throughout. Back: No spinal tenderness. No costovertebral tenderness. Full range of motion. Skin: Warm, dry with normal turgor. Normal color with no rashes, no lesions, and no evidence of cellulitis. MS/ Extremity: Pulses equal, no cyanosis. Neurovascular intact. Full, normal range of motion. Neuro: Awake and alert, GCS 15, oriented to person, place, time, and situation. Cranial nerves II-XII grossly intact. Motor strength 5/5 in all extremities. Sensory grossly intact. Cerebellar exam normal. Normal gait. Vital Signs: 16:03 BP 156 / 107; Pulse 86; Resp 17; Temp 98.5; Pulse Ox 98% ; Weight 83.91 kg; Height 5 ll1 ft. 5 in. (165.10 cm); Pain 8/10; 17:15 BP 148 / 102; Pulse 91; Resp 16; Pulse Ox 100% on R/A; iw 16:03 Body Mass Index 30.79 (83.91 kg, 165.10 cm) ll1 MDM: 16:05 Patient medically screened. rust 17:26 Data reviewed: vital signs, nurses notes, and as a result, I will discharge patient. jr8 Data interpreted: Pulse oximetry: on room air is 100 %. Interpretation: normal. Counseling: I had a detailed discussion with the patient and/or guardian regarding: the historical points, exam findings, and any diagnostic results supporting the discharge/admit diagnosis, lab results, the need for outpatient follow up, a family practitioner, a neurologist, to return to the emergency department if symptoms worsen or persist or if there are any questions or concerns that arise at home. Response to treatment: the patient's symptoms have markedly improved after treatment, patient is well hydrated. 06/17 16:19 Order name: IV; Complete Time: 16:28 jr8 Administered Medications: 16:32 Drug: Benadryl 25 mg Route: IVP; Site: right antecubital; iw 16:32 Drug: Decadron - Dexamethasone 10 mg Route: IVP; Site: right antecubital; iw 16:32 Drug: NS 0.9% 500 ml Route: IV; Rate: bolus; Site: right antecubital; iw 16:33 Drug: Reglan 10 mg Route: IVP; Site: right antecubital; iw Disposition: 18:00 Co-signature as Attending Physician, Ronald Ramirez MD. rn Disposition: 06/17/20 17:27 Discharged to Home. Impression: Migraine. - Condition is Stable. - Discharge Instructions: Migraine Headache. - Prescriptions for Fioricet 50- 325-40 mg Oral tablet - take 2 tablet by ORAL route every 4 hours as needed not to exceed 6 tablets per 24hrs; 20 tablet. - Work release form, Medication Reconciliation Form, Thank You Letter, Antibiotic Education, Prescription Opioid Use form. - Follow up: Private Physician; When: 5 - 6 days; Reason: Recheck today's complaints, Continuance of care, Re-evaluation by your physician. - Problem is new. - Symptoms have improved. Signatures: Belinda Shea RN RN iw Ronald Ramirez MD MD rn Roszak, Josh, PA PA jr8 Zuri Woodruff RN RN ll1 Corrections: (The following items were deleted from the chart) 17:43 17:27 06/17/2020 17:27 Discharged to Home. Impression: Migraine. Condition is Stable. iw Forms are Medication Reconciliation Form, Thank You Letter, Antibiotic Education, Prescription Opioid Use. Follow up: Private Physician; When: 5 - 6 days; Reason: Recheck today's complaints, Continuance of care, Re-evaluation by your physician. Problem is new. Symptoms have improved. jr8
--- NOTE | 2020-06-18 07:22 | ER ---
Nurse's Notes [facility] Name: Ana Capone Age: 30 yrs Sex: Female : 1990 Arrival Date: 06/17/2020 Time: 16:02 Bed 15 Private MD: Diagnosis: Migraine Presentation: 06/17 16:03 Chief complaint: Patient states: Migraine PACK for 1 day, worse than usual for 1 month. + ll1 nausea. Coronavirus screen: Client denies travel out of the [place] in the last 14 days. At this time, the client does not indicate any symptoms associated with coronavirus-19. Ebola Screen: Patient denies travel to an Ebola-affected area in the 21 days before illness onset. Initial Sepsis Screen: Does the patient meet any 2 criteria? No. Patient's initial sepsis screen is negative. Risk Assessment: Do you want to hurt yourself or someone else? Patient reports no desire to harm self or others. 16:03 Method Of Arrival: Ambulatory ll1 16:03 Acuity: YANNICK 3 ll1 16:50 Initial Sepsis Screen: Does the patient have a suspected source of infection? No. iw Patient's initial sepsis screen is negative. Onset of symptoms was June 17, 2020. Triage Assessment: 17:00 Headache History: The patient has had previous headaches and this one is similar to iw previous episodes. General: Appears in no apparent distress. Behavior is calm, cooperative. 17:00 Pain: Also complains of no other associated symptoms. iw 17:40 Pain: Pain currently is 6 out of 10 on a pain scale. iw 19:23 Pain: Pain began. iw Historical: - Allergies: 16:03 Tramadol HCl; ll1 - PMHx: 16:03 Kidney stones; Migraines; ll1 - PSHx: 16:03 None; ll1 - Immunization history:: Flu vaccine is up to date. - Social history:: Smoking status: Patient denies any tobacco usage or history of. Patient/guardian denies using alcohol, street drugs, tobacco products. Screenin:36 Abuse screen: Denies threats or abuse. Denies injuries from another. Nutritional iw screening: No deficits noted. Tuberculosis screening: No symptoms or risk factors identified. Fall Risk None identified. Assessment: 16:50 General: Appears in no apparent distress. Behavior is calm, cooperative. Pain: iw Complains of pain in forehead Pain currently is 8 out of 10 on a pain scale. Neuro: Level of Consciousness is awake, alert, obeys commands, Oriented to person, place, time, situation, Moves all extremities. Full function Reports headache. Cardiovascular: Patient's skin is warm and dry. Respiratory: Respiratory effort is even, unlabored, Respiratory pattern is regular, symmetrical. Derm: Skin is intact, is healthy with good turgor. Musculoskeletal: Range of motion: intact in all extremities. 17:35 Reassessment: Patient appears in no apparent distress at this time. Patient and/or iw family updated on plan of care and expected duration. Pain level reassessed. Patient is alert, oriented x 3, equal unlabored respirations, skin warm/dry/pink. pain down to 6/10 Patient states feeling better. Patient states symptoms have improved. Vital Signs: 16:03 BP 156 / 107; Pulse 86; Resp 17; Temp 98.5; Pulse Ox 98% ; Weight 83.91 kg; Height 5 ll1 ft. 5 in. (165.10 cm); Pain 8/10; 17:15 BP 148 / 102; Pulse 91; Resp 16; Pulse Ox 100% on R/A; iw 16:03 Body Mass Index 30.79 (83.91 kg, 165.10 cm) ll1 ED Course: 16:02 Patient arrived in ED. mr 16:03 Arm band placed on Patient placed in an exam room, on a stretcher. ll1 16:05 Triage completed. ll1 16:05 Bharat Rodriguez [facility]. jr8 16:05 Ronald Ramirez MD is Attending Physician. jr8 16:28 Bed in low position. Call light in reach. Side rails up X 1. Warm blanket given. Verbal jp3 reassurance given. Pulse ox on. NIBP on. 16:28 Inserted saline lock: 20 gauge in right antecubital area, using aseptic technique. jp3 Patient maintains SpO2 saturation greater than 95% on room air. 16:32 Belinda Shea, RN is Primary Nurse. iw 17:42 No provider procedures requiring assistance completed. IV discontinued, intact, iw bleeding controlled, No redness/swelling at site. Pressure dressing applied. Administered Medications: 16:32 Drug: Benadryl 25 mg Route: IVP; Site: right antecubital; iw 16:32 Drug: Decadron - Dexamethasone 10 mg Route: IVP; Site: right antecubital; iw 16:32 Drug: NS 0.9% 500 ml Route: IV; Rate: bolus; Site: right antecubital; iw 16:33 Drug: Reglan 10 mg Route: IVP; Site: right antecubital; iw Outcome: 17:27 Discharge ordered by MD. amaya 17:42 Discharged to home ambulatory. iw 17:42 Condition: good 17:42 Discharge instructions given to patient, Instructed on discharge instructions, follow up and referral plans. medication usage, Demonstrated understanding of instructions, follow-up care, medications, Prescriptions given X 1. 17:43 Patient left the ED. iw Signatures: Hanh George Irene, RN RN iw Bharat Rodriguez PA PA jr8 Barrera Lopez jp3 Zuri Woodruff RN RN ll1 Corrections: (The following items were deleted from the chart) 19:23 18:00 Pain: Pain currently is 6 out of 10 on a pain scale. iw iw
[2020-06-18 07:30] VITALS: TEMP 98.5
[2020-06-18 07:31] VITALS: BP 148/102; O2SAT 100
== END 2020-06-17 17:43 | disposition home or self-care (01) ==
LOC: ER 15:48
DX: G43.909 Migraine, unspecified, not intractable, without status migrainosus (principal); Z87.442 Personal history of urinary calculi; Z88.5 Allergy status to narcotic agent
CPT/HCPCS: 96374; 96375; 99284; J1100; J1200; J2765; J7040

== ENCOUNTER 2020-10-16 01:24 | Emergency (ER) | payer SELFPAY ==
--- NOTE | 2020-10-16 01:50 | EDPHYS ---
Physician Documentation [facility] Name: Ana Capone Age: 30 yrs Sex: Female : 1990 Arrival Date: 10/16/2020 Time: 01:28 Bed 19 Private MD: FAUSTO Physician Elijah Santoro HPI: 10/16 01:45 This 30 yrs old Female presents to ER via Unassigned with complaints of gladis Headache. 01:45 The patient complains of pain to the top of head, forehead, left frontal area, left gladis side of the back of head, left occipital area, left base of the skull, right frontal area, right side of the back of head, right occipital area and right base of the skull. The patient describes the headache as constant. Onset: The symptoms/episode began/occurred 2 day(s) ago. Associated signs and symptoms: The patient has no apparent associated signs or symptoms. Severity of symptoms: At its worst the pain was mild, moderate, in the emergency department the pain is unchanged. Headache History: The patient has had previous headaches and this one is similar to previous episodes. The symptoms are alleviated by nothing. the symptoms are aggravated by nothing. The patient has experienced similar episodes in the past, multiple times. 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 - Social history:: Smoking status: unknown Patient/guardian denies using alcohol, street drugs, tobacco products. - Family history:: not pertinent. ROS: 01:45 Constitutional: Negative for fever, chills, and weight loss, Eyes: Negative for injury, gladis pain, redness, and discharge, Neck: Negative for injury, pain, and swelling, Cardiovascular: Negative for chest pain, palpitations, and edema, Respiratory: Negative for shortness of breath, cough, wheezing, and pleuritic chest pain, Abdomen/GI: Negative for abdominal pain, nausea, vomiting, diarrhea, and constipation, Back: Negative for injury and pain, : Negative for injury, bleeding, discharge, and swelling, MS/Extremity: Negative for injury and deformity, Skin: Negative for injury, rash, and discoloration, Psych: Negative for depression, anxiety, suicide ideation, homicidal ideation, and hallucinations, Allergy/Immunology: Negative for hives, rash, and allergies, Endocrine: Negative for neck swelling, polydipsia, polyuria, polyphagia, and marked weight changes, Hematologic/Lymphatic: Negative for swollen nodes, abnormal bleeding, and unusual bruising. 01:45 ENT: Positive for sinus congestion, sinus pain. 01:45 Neck: Negative for pain with movement, stiffness. Exam: 01:45 Constitutional: This is a well developed, well nourished patient who is awake, alert, gladis and in no acute distress. Head/Face: Normocephalic, atraumatic. Eyes: Pupils equal round and reactive to light, extra-ocular motions intact. Lids and lashes normal. Conjunctiva and sclera are non-icteric and not injected. Cornea within normal limits. Periorbital areas with no swelling, redness, or edema. ENT: Nares patent. No nasal discharge, no septal abnormalities noted. Tympanic membranes are normal and external auditory canals are clear. Oropharynx with no redness, swelling, or masses, exudates, or evidence of obstruction, uvula midline. Mucous membranes moist. Neck: Trachea midline, no thyromegaly or masses palpated, and no cervical lymphadenopathy. Supple, full range of motion without nuchal rigidity, or vertebral point tenderness. No Meningismus. Chest/axilla: Normal chest wall appearance and motion. Nontender with no deformity. No lesions are appreciated. Cardiovascular: Regular rate and rhythm with a normal S1 and S2. No gallops, murmurs, or rubs. Normal PMI, no JVD. No pulse deficits. Respiratory: Lungs have equal breath sounds bilaterally, clear to auscultation and percussion. No rales, rhonchi or wheezes noted. No increased work of breathing, no retractions or nasal flaring. Abdomen/GI: Soft, non-tender, with normal bowel sounds. No distension or tympany. No guarding or rebound. No evidence of tenderness throughout. Back: No spinal tenderness. No costovertebral tenderness. Full range of motion. Skin: Warm, dry with normal turgor. Normal color with no rashes, no lesions, and no evidence of cellulitis. MS/ Extremity: Pulses equal, no cyanosis. Neurovascular intact. Full, normal range of motion. Neuro: Awake and alert, GCS 15, oriented to person, place, time, and situation. Cranial nerves II-XII grossly intact. Motor strength 5/5 in all extremities. Sensory grossly intact. Cerebellar exam normal. Normal gait. Psych: Awake, alert, with orientation to person, place and time. Behavior, mood, and affect are within normal limits. 01:45 Neck: ROM/movement: is normal, no acute changes, pain, is not appreciated, limited range of motion, is not appreciated, Meningeal signs: are not present, Kernig's sign is negative, Brudzinski's sign is negative. Vital Signs: 01:35 BP 133 / 85; Pulse 87; Resp 16; Temp 98.3; Pulse Ox 99% ; Weight 81.65 kg; Height 5 ft. rr5 5 in. (165.10 cm); Pain 8/10; 02:35 BP 152 / 93; Pulse 80; Resp 17; Pulse Ox 99% ; rr5 01:35 Body Mass Index 29.95 (81.65 kg, 165.10 cm) rr5 Ericka Coma Score: 01:45 Eye Response: spontaneous(4). Verbal Response: oriented(5). Motor Response: obeys gladis commands(6). Total: 15. MDM: 01:32 Patient medically screened. [facility] 01:45 Differential diagnosis: migraine, tension headache, trigeminal neuralgia, vasomotor gladis headache. Data reviewed: vital signs, nurses notes. Data interpreted: remote broadcast technician: rate is 69 beats/min, rhythm is regular, Pulse oximetry: on room air is 100 %. Counseling: I had a detailed discussion with the patient and/or guardian regarding: the historical points, exam findings, and any diagnostic results supporting the discharge/admit diagnosis, lab results, the need for outpatient follow up, for definitive care, a family practitioner, a neurologist. 10/16 01:45 Order name: COVID-19 [facility] 10/16 01:58 Order name: Urine --Ancillary (enter results) tt3 10/16 01:45 Order name: Urine Dipstick-Ancillary (obtain specimen); Complete Time: 02:03 [facility] 10/16 01:45 Order name: Urine Test (obtain specimen); Complete Time: 02:03 [facility] 12/09 01:58 Order name: Urine Dipstick--Ancillary (enter results) tt3 Administered Medications: 02:02 Drug: TORadol 60 mg Route: IM; Site: right gluteus; rr5 02:36 Follow up: Response: No adverse reaction; Pain is decreased rr5 Disposition: 10/16/20 01:50 Discharged to Home. Impression: Headache. - Condition is Stable. - Discharge Instructions: General Headache Without Cause, Migraine Headache, Migraine Headache, [id number], General Headache Without Cause, [id number]. - Prescriptions for Ibuprofen 600 mg Oral Tablet - take 1 tablet by ORAL route every 6 hours As needed take with food; 20 tablet. Zofran 4 mg Oral Tablet - take 1 tablet by ORAL route every 12 hours As needed; 20 tablet. - Medication Reconciliation Form, Thank You Letter, Antibiotic Education, Prescription Opioid Use form. - Follow up: Private Physician; When: 2 - 3 days; Reason: Recheck today's complaints, Continuance of care, Re-evaluation by your physician. Follow up: Arnaud Michel MD; When: 2 - 3 days; Reason: Recheck today's complaints, Continuance of care, Re-evaluation by your physician. - Problem is new. - Symptoms have improved. Signatures: Dispatcher [employer] EDWA Elijah Santoro MD MD cha Roque, Raymond RN RN rr5 Corrections: (The following items were deleted from the chart) 02:36 01:50 10/16/2020 01:50 Discharged to Home. Impression: Headache. Condition is Stable. rr5 Forms are Medication Reconciliation Form, Thank You Letter, Antibiotic Education, Prescription Opioid Use. Follow up: Private Physician; When: 2 - 3 days; Reason: Recheck today's complaints, Continuance of care, Re-evaluation by your physician. Follow up: Arnaud Michel; When: 2 - 3 days; Reason: Recheck today's complaints, Continuance of care, Re-evaluation by your physician. Problem is new. Symptoms have improved. gladis
[2020-10-16] MEDS ORDERED: KETOROLAC 30 MG/ML INJ ONE (02:12)
--- NOTE | 2020-10-16 02:37 | ER ---
Nurse's Notes [facility] Name: Ana Capone Age: 30 yrs Sex: Female : 1990 Arrival Date: 10/16/2020 Time: 01:28 Bed 19 Private MD: Diagnosis: Headache Presentation: 10/16 01:35 Chief complaint: Patient states: I am having headache started 11PM tonight , took rr5 dayquil but it did not worked. 01:35 Coronavirus screen: Client denies travel out of the [place] in the last 14 days. rr5 congestion, Client presents with at least one sign or symptom that may indicate coronavirus-19. Standard/surgical mask placed on the client. Provider contacted for isolation considerations. Ebola Screen: Patient negative for fever greater than or equal to 101.5 degrees Fahrenheit, and additional compatible Ebola Virus Disease symptoms Patient denies exposure to infectious person. Patient denies travel to an Ebola-affected area in the 21 days before illness onset. Initial Sepsis Screen: Does the patient meet any 2 criteria? No. Patient's initial sepsis screen is negative. Does the patient have a suspected source of infection? No. Patient's initial sepsis screen is negative. Risk Assessment: Do you want to hurt yourself or someone else? Patient reports no desire to harm self or others. Onset of symptoms was October 16, 2020. 01:35 Method Of Arrival: Ambulatory rr5 01:35 Acuity: YANNICK 4 rr5 Triage Assessment: 01:35 Headache History: The patient has had previous headaches and this one is different than rr5 previous episodes. 01:35 Pain: Also complains of no other associated symptoms. 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 - Social history:: Smoking status: unknown Patient/guardian denies using alcohol, street drugs, tobacco products. - Family history:: not pertinent. Screenin:40 Abuse screen: Denies threats or abuse. Denies injuries from another. Nutritional rr5 screening: No deficits noted. Tuberculosis screening: No symptoms or risk factors identified. Fall Risk None identified. Total Mckeon Fall Scale indicates No Risk (0-24 pts). Assessment: 01:35 General: Appears in no apparent distress. comfortable, Behavior is calm, cooperative, rr5 appropriate for age. 01:35 Pain: Complains of pain in head Pain currently is 8 out of 10 on a pain scale. Quality rr5 of pain is described as aching, Pain began gradually, Is intermittent. Neuro: Level of Consciousness is awake, alert, obeys commands, Oriented to person, place, time, situation, Reports headache. Cardiovascular: Capillary refill < 3 seconds Patient's skin is warm and dry. Respiratory: Airway is patent Respiratory effort is even, unlabored, Respiratory pattern is regular, symmetrical. GI: Patient currently denies nausea, vomiting. : No signs and/or symptoms were reported regarding the genitourinary system. EENT: No signs and/or symptoms were reported regarding the EENT system. Derm: Skin is intact, is fragile, Skin temperature is warm. Musculoskeletal: Capillary refill < 3 seconds. 02:00 Reassessment: ordered for discharge, awaiting for shot time. rr5 02:35 Reassessment: Patient appears in no apparent distress at this time. Patient is alert, rr5 oriented x 3, equal unlabored respirations, skin warm/dry/pink. discharge instruction given and explained without complaints made Patient states feeling better. Patient states symptoms have improved. Vital Signs: 01:35 BP 133 / 85; Pulse 87; Resp 16; Temp 98.3; Pulse Ox 99% ; Weight 81.65 kg; Height 5 ft. rr5 5 in. (165.10 cm); Pain 8/10; 02:35 BP 152 / 93; Pulse 80; Resp 17; Pulse Ox 99% ; rr5 01:35 Body Mass Index 29.95 (81.65 kg, 165.10 cm) rr5 Ericka Coma Score: 01:45 Eye Response: spontaneous(4). Verbal Response: oriented(5). Motor Response: obeys gladis commands(6). Total: 15. ED Course: 01:28 Patient arrived in ED. ag3 01:32 Elijah Santoro MD is Attending Physician. gladis 01:35 Patient has correct armband on for positive identification. Bed in low position. Call rr5 light in reach. 01:37 Rob, Joaquim, RN is Primary Nurse. rr5 01:49 Arnaud Michel MD is Referral Physician. [facility] 01:50 Triage completed. rr5 01:50 Arm band placed on right wrist. rr5 02:03 Urine collected: clean catch specimen, clear. rr5 02:07 COVID swab sent to lab. rr5 02:08 No provider procedures requiring assistance completed. Patient did not have IV access rr5 during this emergency room visit. Administered Medications: 02:02 Drug: TORadol 60 mg Route: IM; Site: right gluteus; rr5 02:36 Follow up: Response: No adverse reaction; Pain is decreased rr5 Outcome: 01:50 Discharge ordered by . gladis 02:35 Discharged to home ambulatory. rr5 02:35 Condition: stable 02:35 Discharge instructions given to patient, Instructed on discharge instructions, follow up and referral plans. medication usage, Demonstrated understanding of instructions, follow-up care, medications, Prescriptions given X 2. 02:36 Patient left the ED. rr5 Addendum: 10/18/2020 10:22 Addendum: COVID-19 Result: Negative result given to RN to notify pt. Notified pt of i w negative COVID 19 swab results. Pt advised that even with a negative test result they should remain in isolation until symptom free for 3 days without medication. Pt also advised to return to the ED for worsening symptoms. Signatures: Elijah Santoro MD MD cha Williams, Irene, RN Irais Roche Raymond, RN RN rr5
[2020-10-16 03:10] LABS: Urine Blood TRACE (NEG); Urine Glucose NEGATIVE (NEG); Urine Protein NEGATIVE (NEG); Urine Specific Gravity 1.025 (1.005-1.030); Urine pH 7.5 (5.0-7.0)
== END 2020-10-16 02:36 | disposition home or self-care (01) ==
LOC: ER 01:24
DX: R51.9 Headache, unspecified (principal); Z20.828 Contact with and (suspected) exposure to other viral communicable diseases; Z88.5 Allergy status to narcotic agent; Z87.442 Personal history of urinary calculi
CPT/HCPCS: 81003; 81025; 96372; 99283; U0002